=== PATIENT | male | born 1995 | race Caucasian/White ===

== ENCOUNTER 2018-08-14 08:30 | Emergency (ER) | payer BC ==
[2018-08-14 08:51] VITALS: BP 148/76
--- NOTE | 2018-08-14 09:14 | UC ---
Head Injury HPI - HPI Summary HPI Summary: head injury x 2 hrs ago s/p fall on ice this morning , hit the back of his head + abrasion with minimal bleeding for the back of the scalp no LOC , no change if memory , + mild photophobia, headache , nausea - History Of Current Complaint Chief Complaint: UCHeadInjury Stated Complaint: S/P FALL ON ICE HEAD INJURY Time Seen by Provider: 08/14/18 09:01 Hx Obtained From: Patient Onset/Duration: Sudden Onset, Lasting Hours - 2, Still Present Severity Currently: Moderate Severity Initially: Moderate Pain Intensity: 7 Character: Dull Aggravating Factor(s): Other - light Alleviating Factor(s): Nothing Associated Signs And Symptoms: Positive: Neck Pain, Nausea. Negative: LOC ( Time In Secs./Mins/Hrs), LOC Duration Unknown, Confusion, Memory Loss, Seizure, Epistaxis, Dental Malocclusion, Vomiting - Allergies/Home Medications Allergies/Adverse Reactions: Allergies Allergy/AdvReac Type Severity Reaction Status Date / Time No Known Allergies Allergy Verified 08/14/18 08:47 Home Medications: Home Medications Albuterol HFA INHALER* [Ventolin HFA Inhaler*] 2 puff INH Q4H PRN 08/14/18 [ History Confirmed 08/14/18] Ramipril CAP* [Altace CAP*] 2.5 mg PO DAILY 08/14/18 [History Confirmed 08/14/18 ] PMH/Surg Hx/FS Hx/Imm Hx Previously Healthy: Yes - Surgical History Surgical History: None - Family History Known Family History: Negative: Blood Disorder - Social History Alcohol Use: Occasionally Substance Use Type: None Smoking Status (MU): Never Smoked Tobacco Review of Systems All Other Systems Reviewed And Are Negative: Yes Constitutional: Positive: Negative Skin: Positive: Negative Eyes: Positive: Negative ENT: Positive: Negative Respiratory: Positive: Negative Cardiovascular: Positive: Negative Gastrointestinal: Positive: Nausea Genitourinary: Positive: Negative Neurological: Positive: Headache. Negative: Weakness, Paresthesia, Numbness Is Patient Immunocompromised?: No Physical Exam Triage Information Reviewed: Yes Appearance: Well-Appearing, Obese Vital Signs: Initial Vital Signs Temp 97.7 F 08/14/18 08:48 Pulse 86 08/14/18 08:48 Resp 18 08/14/18 08:48 BP 148/76 08/14/18 08:48 Pulse Ox 97 08/14/18 08:48 Vital Signs Reviewed: Yes Eye Exam: Normal ENT: Positive: Normal ENT inspection, Hearing grossly normal, Pharynx normal, TMs normal. Negative: Pharyngeal erythema, Nasal congestion Neck: Positive: Supple, Nontender, No Lymphadenopathy Respiratory: Positive: Chest non-tender, Lungs clear, Normal breath sounds, No respiratory distress Cardiovascular Exam: Normal Cardiovascular: Positive: RRR, No Murmur, Pulses Normal Musculoskeletal Exam: Normal Musculoskeletal: Positive: Strength Intact, ROM Intact Neurological: Positive: Alert, Muscle Tone Normal Skin: Positive: Other - small area of abrasion back fo the scalp , no need for repair Head Injury Course/Dx - Differential Dx/Diagnosis Provider Diagnosis: Concussion, Abrasion, scalp w/o infection Discharge - Sign-Out/Discharge Documenting (check all that apply): Patient Departure All imaging exams completed and their final reports reviewed: No Studies - Discharge Plan Condition: Stable Disposition: HOME Patient Education Materials: Concussion (ED), Abrasion (ED) Referrals: Pawel Mendez MD [Primary Care Provider] - If Needed - Billing Disposition and Condition Condition: STABLE Disposition: Home
== END 2018-08-14 09:14 | disposition home or self-care (01) ==
LOC: UCCORT 08:30
DX: S06.0X0A Concussion without loss of consciousness, initial encounter (principal); S00.01XA Abrasion of scalp, initial encounter; W00.0XXA Fall on same level due to ice and snow, initial encounter; Y92.9 Unspecified place or not applicable
CPT/HCPCS: 99202; G0463